=== PATIENT | female | born 1930 | race Caucasian/White ===

== ENCOUNTER 2017-09-19 10:35 | Outpatient (CLI) | payer BC ==
[2017-09-19] VITALS (7 sets, daily range): BP systolic 118–145; BP diastolic 53–65
[~2017-09-19] VITALS: Ht 167.6 cm; Wt 53.1 kg
[~2017-09-19 10:35] MED LIST: ASPI-482 PO; BIOT5CAP3 PO; CALC500T30 PO; CHOL2000 PO; CYAN10005 PO; DIGO125T PO; LANS30TA6 PO; LEVO88TA4 PO; METO50TA29 PO; MULT-18 PO; OMEG1CAP6 PO; OXYC-323 PO; PRAV40TA2 PO; TRIA1CAP3 PO; VITA400C6 PO; WARF2.5T83 PO; WARF3TAB54 PO
[2017-09-19] MEDS ORDERED: BACITRACIN 50,000 UNIT in IV NORMAL SALINE 250ML 250 ML IRR ONE (11:00)
[2017-09-19] MEDS ORDERED: ceFAZolin SODIUM 1 GM in IV DEXTROSE 5% 50 ML IV ONE (11:00)
[2017-09-19] MEDS ORDERED: ceFAZolin SODIUM IV Push 1 GM VIAL. IVP ONE (11:00)
[2017-09-19 11:20] LABS: HEMATOCRIT 35.5 % (36.0-47.0); HEMOGLOBIN 11.8 g/dL (12.0-15.5); RED BLOOD COUNT 3.91 x10^6/uL (3.50-5.40); RED CELL DISTRIBUTION WIDTH 13.8 % (11.5-14.5); WHITE BLOOD COUNT 5.8 x10^3/uL (4.0-11.0)
[2017-09-19 11:37] LABS: INR 1.2 (0.8-1.1); PROTHROMBIN TIME PATIENT 14.8 SEC (11.7-14.0)
[2017-09-19] MEDS ORDERED: ZOLE5INF IV (12:00)
[2017-09-19] MEDS ORDERED: LATA2.5D3 OP (12:00)
[2017-09-19] MEDS ORDERED: DIAZ5TAB PO (12:00)
[2017-09-19] MEDS ORDERED: LIDOCAINE 2%/EPI 1:100,000 20 ML VIAL. ONE (12:11)
--- NOTE | 2017-09-19 12:12 | PDOC ---
MODERATE SEDATION ASSESSMENT RISKS/ALTERNATIVES Risks/Alternatives Risks and alternatives of this type of sedation and procedure discussed with: RISK/ALTERNATIVES: Patient H & P ON CHART H & P H & P on chart and reviewed for co-morbid conditions and appropriate labs. H&P ON CHART: Yes STATUS PREG STATUS ASSESSED: N/A MEDS/ALLERGIES REVIEWED Meds/Allergies Reviewed Medications and Allergies including time and route of recently administered narcotics and sedatives. MEDS/ALLERGIES REVIEWED: Yes ASA RATING ASA RATING: II AIRWAY ASSESSMENT Airway Assessment Airway patency, oral function limitations, presence of caps, crowns, dentures, partials, and ability to extend neck assessed. AIRWAY ASSESSMENT: Yes MALLAMPATI SCORE MALLAMPATI SCORE: II PRE-SEDATION ASSESSMENT PRE-SEDATION ASSESSMENT: Yes CALISTA DUNN MD Sep 19, 2017 12:12
[2017-09-19] MEDS ORDERED: fentaNYL PF VIAL 100 MCG/2 ML VIAL ONE (12:14)
[2017-09-19] MEDS ORDERED: MIDAZOLAM HCL/PF 2 MG/2 ML VIAL. ONE (12:14)
[2017-09-19] MEDS ORDERED: fentaNYL PF VIAL 100 MCG/2 ML VIAL IV ONE (12:45)
[2017-09-19] MEDS ORDERED: MIDAZOLAM HCL/PF 2 MG/2 ML VIAL. IV ONE (12:45)
--- NOTE | 2017-09-19 16:26 | CARD ---
APPROVED REPORT PROCEDURES MODERATE SEDATION 60 MINUTES INDICATIONS 30 mL of 2% lidocaine was infiltrated into the skin and subcutaneous tissues for local anesthesia. A n incision was made over the left infraclavicular fossa and using blunt dissection and cautery the pr eviously placed pacemaker was exposed. The previous generator was then removed and leads were secured into place and were attached to a [employer] dual-chamber permanent pacemaker generator model [id number], SN [id number]. This was placed in the poc ket that was subsequently closed in 2 layers. Hemostasis was secured At the end of procedure, the right ventricular lead showed sensing amplitude of 2.2 mV, impedance of 360 ohms and a threshold of 0.75volts. The right atrial lead showed a sensing amplitude of 1.1 mil livolts, impedance of 430 ohms and a threshold of 0.75 volts. Patient tolerated the procedure well. There were no immediate complications. No significant changes to the measurements were noted compared to pre-procedural settings. Mode: DDD IMPLANTED DEVICES Previous Medtronic Leads: RA: 5076-45, SN: [id number] RV: 5076-52, SN: [id number] EXPLANTED DEVICES Medtronic [id number], SN [id number] CONCLUSION Successful generator change for EOL.
== END 2017-09-19 14:40 | disposition home or self-care (01) ==
LOC: CCL 10:35
PROVIDERS: ATTEND Internal Medicine Cardiovascular Disease
DX: Z45.010 Encounter for checking and testing of cardiac pacemaker pulse generator [battery] (principal); E78.00 Pure hypercholesterolemia, unspecified; I48.91 Unspecified atrial fibrillation; E03.9 Hypothyroidism, unspecified; M19.91 Primary osteoarthritis, unspecified site; Z96.641 Presence of right artificial hip joint; Z79.01 Long term (current) use of anticoagulants; Z87.01 Personal history of pneumonia (recurrent); Z90.710 Acquired absence of both cervix and uterus; Z72.0 Tobacco use
CPT/HCPCS: 33213; 36415; 85027; 85610; 99152; 99153; C1785; J0690; J2250; J3010; J3490; J7050; 33228; J7030

== ENCOUNTER 2019-11-30 21:17 | Emergency (ER) | payer BC, OTHER ==
[~2019-11-30 21:17] MED LIST changes: +CYAN-25 PO; -CYAN10005 PO; +DIAZ5TAB PO; -DIGO125T PO; +DIGO125T3 PO; +LATA2.5D3 OP; -OXYC-323 PO; +OXYC1TAB15 PO; +ZOLE5INF IV
--- NOTE | 2019-11-30 22:03 | PHYS DOC ---
Past Medical History Past Medical History: A-Fib, GERD, High Cholesterol, Hypertension Additional Past Medical Histor: THYROID DZ Past Surgical History: Pacemaker, Other Additional Past Surgical Histo: FX RIGHT LEG, FX RIGHT HIP, RIGHT HIP REPLACEMENT Alcohol Use: None Drug Use: None Adult General Chief Complaint Chief Complaint: NOSEBLEED HPI HPI Patient is a 89 year old female with history of hypertension, dyslipidemia, atrial fibrillation on Coumadin, GERD, thyroid disease who presents with complaining of nosebleed. Patient complaining of epistaxis that started at 1800 about 3 hours prior to arrival to ER and stopped at arrival to ER. Patient states she has had cough for 2 weeks without fever and chills, nasal congestion, chest pain and shortness of breath. Patient had therapeutic INR was checked 3 days ago without change of the dose of Coumadin. Review of Systems Review of Systems Constitutional: Denies fever or chills [] Eyes: Denies change in visual acuity, redness, or eye pain [] HENT: Denies nasal congestion or sore throat, reports epistaxis[] Respiratory: Reports cough and mild denies shortness of breath [] Cardiovascular: No additional information not addressed in HPI [] GI: Denies abdominal pain, nausea, vomiting, bloody stools or diarrhea [] : Denies dysuria or hematuria [] Musculoskeletal: Denies back pain or joint pain [] Integument: Denies rash or skin lesions [] Neurologic: Denies headache, focal weakness or sensory changes [] Endocrine: Denies polyuria or polydipsia [] All other systems were reviewed and found to be within normal limits, except as documented in this note. Current Medications Current Medications Current Medications Medications (Trade) Dose Ordered Sig/Yari Start Time Stop Time Status Last Admin Dose Admin Oxymetazoline HCl (Afrin) 2 spray 1X ONCE 11/30/19 22:30 11/30/19 22:31 DC 11/30/19 22:26 2 SPRAY Allergies Allergies Allergies Coded Allergies Type Severity Reaction Last Updated Verified No Known Drug Allergies 04/26/17 No Physical Exam Physical Exam Constitutional: Well developed, well nourished, milddistress, non-toxic appearance. [] HENT: Normocephalic, atraumatic, bilateral external ears normal, oropharynx dry, no oral exudates, dried blood in bilateral nostril. [] Eyes: PERRLA, EOMI, conjunctiva normal, no discharge. [] Neck: Normal range of motion, no tenderness, supple, no stridor. [] Cardiovascular:Heart rate regular rhythm, no murmur [] Lungs & Thorax: Bilateral breath sounds clear to auscultation [] Abdomen: Bowel sounds normal, soft, no tenderness, no masses, no pulsatile masses. [] Skin: Warm, dry, no erythema, no rash. [] Back: No tenderness, no CVA tenderness. [] Extremities: No tenderness, no cyanosis, no clubbing, ROM intact, no edema. [] Neurologic: Alert and oriented X 3, normal motor function, normal sensory function, no focal deficits noted. [] Psychologic: Affect anxious, mood normal. [] Current Patient Data Vital Signs Vital Signs Date Time Temp Pulse Resp B/P (MAP) Pulse Ox O2 Delivery O2 Flow Rate FiO2 11/30/19 21:35 98.3 61 19 197/83 (121) 95 Room Air 98.3 Lab Values Laboratory Tests Test 11/30/19 21:30 White Blood Count 6.8 x10^3/uL (4.0-11.0) Red Blood Count 3.70 x10^6/uL (3.50-5.40) Hemoglobin 10.9 g/dL (12.0-15.5) L Hematocrit 33.4 % (36.0-47.0) L Mean Corpuscular Volume 90 fL (79-100) Mean Corpuscular Hemoglobin 29 pg (25-35) Mean Corpuscular Hemoglobin Concent 33 g/dL (31-37) Red Cell Distribution Width 14.3 % (11.5-14.5) Platelet Count 220 x10^3/uL (140-400) Neutrophils (%) (Auto) 58 % (31-73) Lymphocytes (%) (Auto) 29 % (24-48) Monocytes (%) (Auto) 9 % (0-9) Eosinophils (%) (Auto) 3 % (0-3) Basophils (%) (Auto) 1 % (0-3) Neutrophils # (Auto) 3.9 x10^3/uL (1.8-7.7) Lymphocytes # (Auto) 2.0 x10^3/uL (1.0-4.8) Monocytes # (Auto) 0.6 x10^3/uL (0.0-1.1) Eosinophils # (Auto) 0.2 x10^3/uL (0.0-0.7) Basophils # (Auto) 0.0 x10^3/uL (0.0-0.2) Prothrombin Time 22.1 SEC (11.7-14.0) H Prothrombin Time INR 2.0 (0.8-1.1) H Activated Partial Thromboplast Time 35 SEC (24-38) Sodium Level 142 mmol/L (136-145) Potassium Level 4.3 mmol/L (3.5-5.1) Chloride Level 105 mmol/L (98-107) Carbon Dioxide Level 30 mmol/L (21-32) Anion Gap 7 (6-14) Blood Urea Nitrogen 39 mg/dL (7-20) H Creatinine 1.4 mg/dL (0.6-1.0) H Estimated GFR (Cockcroft-Gault) 35.4 BUN/Creatinine Ratio 28 (6-20) H Glucose Level 111 mg/dL (70-99) H Calcium Level 9.0 mg/dL (8.5-10.1) Total Bilirubin 0.2 mg/dL (0.2-1.0) Aspartate Amino Transferase (AST) 25 U/L (15-37) Alanine Aminotransferase (ALT) 19 U/L (14-59) Alkaline Phosphatase 61 U/L (46-116) Total Protein 7.2 g/dL (6.4-8.2) Albumin 3.4 g/dL (3.4-5.0) Albumin/Globulin Ratio 0.9 (1.0-1.7) L Laboratory Tests 11/30/19 21:30 Laboratory Tests 11/30/19 21:30 EKG EKG [] Radiology/Procedures Radiology/Procedures [][facility] [address] [place], [place] [id number] IMAGING REPORT Signed PATIENT: PAMELA GARCIA ACCOUNT: [id number] : 1930 LOCATION: ER AGE: 89 SEX: F EXAM STATUS: REG ER ORD. PHYSICIAN: SEFERINO SANABRIA MD REASON: cough x 2 weeks PROCEDURE: CHEST AP ONLY Study: CHEST AP ONLY Indication: Cough. Comparison: None recently. Findings: Dual-lead left chest wall pacer. The cardiomediastinal silhouette is within normal limits for size. Circumferential mitral annular calcifications. Calcification is also seen along the thoracic aorta. No pneumothorax, pleural effusion or localized infiltrate. Haziness of both lung bases relating to overlying breast tissue. The diaphragm is flattened. 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 Similar findings are likely present on the left though not included in the [id number]. Granulomas. Partially visualized cervical spine degenerative changes. Dense carotid atherosclerosis. Partially visualized vertebral body augmentation likely at L1. Impression: No acute radiographic abnormality of the chest. Numerous chronic findings as above to include flattening of the diaphragm, end-stage shoulder arthrosis, carotid atherosclerotic calcifications and circumferential mitral annular mineralization. Electronically signed by: HENNY DURAN MD (11/30/2019 11:09 PM) [facility] DICTATED and SIGNED BY: HENNY DURAN MD DATE: 11/30/192308 Course & Med Decision Making Course & Med Decision Making Pertinent Labs and Imaging studies reviewed. (See chart for details) Evaluation of patient in ER showed 89-year-old female patient presented to ER with complaining of nosebleed on Coumadin. Patient did not have active epistaxis at arrival to ER later on had 1 episode of epistaxis with a standing up for x- ray that stopped with using local patient and Afrin spray. Patient had hemoglobin of 10.9 that was dropped from 11.8 in 2017. Chest x-ray did not show infiltration. Patient feels comfortable to go home with using nasal spray and nasal clips in case of epistaxis. INR was 0.20 and was instructed to continue current medication and follow up with her primary care physician. I've spoken with the patient and/or caregivers. I've explained the patient's condition, diagnosis and treatment plan based on information available to me at this time. I've answered the patient's and/or caregivers questions and addressed any concerns. The patient and/or caregivers have a good understanding the patient's diagnosis, condition and treatment plan as can be expected at this point. Vital signs have been stabilized. The patient's condition is stable for discharge from the emergency department. The patient will pursue further outpatient evaluation with her primary care provider or other designated consulting physician as outlined in the discharge instructions. Patient and/or caregivers are agreeable to this plan of care and follow-up instructions have been explained in detail. The patient and/or caregivers have received these instructions in written format and expressed understanding of these discharge instructions. The patient and her caregivers are aware that if any significant change in condition or worsening of symptoms should prompt him to immediately return to this of the closest emergency department. If an emergent department is not readily available I would encourage him to call 911. Rachidon Disclaimer Dragon Disclaimer This electronic medical record was generated, in whole or in part, using a voice recognition dictation system. Departure Departure Impression: Primary Impression: Anterior epistaxis Additional Impressions: Acute bronchitis Anticoagulated on Coumadin Renal insufficiency Disposition: HOME, SELF-CARE (at 2229) Condition: IMPROVED Referrals: JENNIFER VILLEDA MD (PCP) Patient Instructions: Acute Bronchitis, Nosebleed, Warfarin Coagulopathy Additional Instructions: Continue home medication Follow-up with your primary care physician in 2-3 days Return to ER if not getting better Use local pressure and Afrin spray as needed for controlling the nosebleed Thank you for visiting . We appreciate you trusting us with your care. If any additional problems come up don't hesitate to return to visit us. Please follow up with your primary care provider so they can plan additional care if needed and know about the problem that you had. If symptoms worsen come back to the Emergency Department. Any concerning symptoms that start such as chest pain, shortness of air, weakness or numbness on one side of the body, running high fevers or any other concerning symptoms return to the ER. Scripts Azithromycin (ZITHROMAX) 250 Mg Tablet 250 MG PO as directed for ANTI-BIOTIC, #6 TAB 0 Refills Take 2 PO x 1 days Then take 1 PO q 24 hour for the next 4 days Prov: SEFERINO SANABRIA MD 11/30/19 Problem Qualifiers Additional Impressions: Acute bronchitis Bronchitis organism: unspecified organism Qualified Codes: J20.9 - Acute bronchitis, unspecified SEFERINO SANABRIA MD Nov 30, 2019 22:03
[2019-11-30 22:22] LABS: BASO % 1 % (0-3); EOS # 0.2 x10^3/uL (0.0-0.7); EOS % 3 % (0-3); HEMATOCRIT 33.4 % (36.0-47.0); HEMOGLOBIN 10.9 g/dL (12.0-15.5); LYMPH % 29 % (24-48); MEAN CORPUSCULAR HEMOGLOBIN 29 pg (25-35); MEAN CORPUSCULAR HGB CONC 33 g/dL (31-37); MEAN CORPUSCULAR VOLUME 90 fL (79-100); MONO # 0.6 x10^3/uL (0.0-1.1); MONO % 9 % (0-9); NEUT # 3.9 x10^3/uL (1.8-7.7); NEUT % 58 % (31-73); PLATELET COUNT 220 x10^3/uL (140-400); RED CELL DISTRIBUTION WIDTH 14.3 % (11.5-14.5); WHITE BLOOD COUNT 6.8 x10^3/uL (4.0-11.0)
[2019-11-30 22:28] LABS: CREATININE 1.4 mg/dL (0.6-1.0); GFR 35.4; POTASSIUM 4.3 mmol/L (3.5-5.1); PROTHROMBIN TIME PATIENT 22.1 SEC (11.7-14.0)
[2019-11-30] MEDS ORDERED: OXYMETAZOLINE 0.05% NASAL SPRAY 30ML BOTTLE. NS ONE (22:30)
[2019-11-30 22:35] LABS: ALBUMIN 3.4 g/dL (3.4-5.0); ALBUMIN/GLOBULIN RATIO 0.9 (1.0-1.7); TOTAL BILIRUBIN 0.2 mg/dL (0.2-1.0); TOTAL PROTEIN 7.2 g/dL (6.4-8.2)
--- NOTE | 2019-11-30 23:12 | RAD ---
Study: CHEST AP ONLY Indication: Cough. Comparison: None recently. Findings: Dual-lead left chest wall pacer. The cardiomediastinal silhouette is within normal limits for size. Circumferential mitral annular calcifications. Calcification is also seen along the thoracic aorta. No pneumothorax, pleural effusion or localized infiltrate. Haziness of both lung bases relating to overlying breast tissue. The diaphragm is flattened. 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 Similar findings are likely present on the left though not included in the [id number]. Granulomas. Partially visualized cervical spine degenerative changes. Dense carotid atherosclerosis. Partially visualized vertebral body augmentation likely at L1. Impression: No acute radiographic abnormality of the chest. Numerous chronic findings as above to include flattening of the diaphragm, end-stage shoulder arthrosis, carotid atherosclerotic calcifications and circumferential mitral annular mineralization. Electronically signed by: HENNY DURAN MD (11/30/2019 11:09 PM) [facility]
[2019-11-30] MEDS ORDERED: AZIT250T PO (23:32)
[2019-11-30 23:35] VITALS: BP 120/59
== END 2019-11-30 23:47 | disposition home or self-care (01) ==
LOC: ER 21:17
DX: R04.0 Epistaxis (principal); J20.9 Acute bronchitis, unspecified; N28.9 Disorder of kidney and ureter, unspecified; Z79.01 Long term (current) use of anticoagulants; I48.91 Unspecified atrial fibrillation; K21.9 Gastro-esophageal reflux disease without esophagitis; E78.00 Pure hypercholesterolemia, unspecified; I10 Essential (primary) hypertension; Z95.0 Presence of cardiac pacemaker
CPT/HCPCS: 36415; 71045; 80053; 85025; 85610; 85730; 99285-25